=== PATIENT | female | born 1975 ===

== ENCOUNTER 2017-10-15 11:49 | Outpatient (CLI) | payer OTHER ==
[~2017-10-15] VITALS: Ht 170.2 cm; Wt 93.0 kg
== END 2017-10-15 12:10 | disposition home or self-care (01) ==
LOC: OFIC 805 11:49
DX: H61.23 Impacted cerumen, bilateral (principal); J30.89 Other allergic rhinitis

== ENCOUNTER → 2017-10-23 | Outpatient (CLI) | payer OTHER | END | disposition home or self-care (01) | LOC: PPH VACUNA 12:12 | DX: Z23 Encounter for immunization (principal) ==

== ENCOUNTER 2023-07-19 15:00 | Outpatient (CLI) | payer OTHER | END 2023-07-19 15:10 | disposition home or self-care (01) | LOC: PPH VACUNA 15:00 | PROVIDERS: ATTEND Emergency Medicine Pediatric Emergency Medicine | DX: Z23 Encounter for immunization (principal) | CPT/HCPCS: 90686; G0008 ==